=== PATIENT | female | born 1940 | race Caucasian/White ===

== ENCOUNTER 2020-08-19 09:02 | Inpatient (IN) ==
[2020-08-19] MEDS ORDERED: ONDANSETRON 4 MG/2 ML VIAL IV STA (09:10)
[2020-08-19] MEDS ORDERED: fentaNYL 100 MCG/2 ML VIAL IV STA (09:10)
[2020-08-19 09:36] LABS: Basophils % 0.5 % (0.0-0.8); Eosinophils # 0.1 10*3/uL (0.0-0.87); Eosinophils % 1.9 % (0.00-10.9); Hemoglobin 14.3 GM/DL (12.0-16.0); Immature Granulocytes % 0.5 %; Immature Granulocytes Absolute 0.04 #; Lymphocytes # 1.5 10*3/uL (1.4-4.0); Lymphocytes % 19.8 % (21.3-54.2); Mean Corpuscular Volume 94.8 FL (87-102); Mean Platelet Volume 10.9 FL (9.6-12.0); Monocytes % 8.3 % (1.7-12.7); Platelet Count 205 T/CUMM (130-400); Red Blood Count 4.43 MC/CUMM (3.8-5.5); Red Cell Distribution Width 12.4 % (9.3-17.3); White Blood Count 7.6 T/CUMM (4-12)
[2020-08-19 09:55] LABS: Albumin 3.1 G/DL (3.4-5.0); Bilirubin,Total 0.6 MG/DL (0.2-1.0); Calcium 8.8 MG/DL (8.5-10.1); Osmolality,Calculated 281.3 MOS/KG (273-304); Potassium 3.4 MMOL/L (3.5-5.1); Total Protein 7.3 G/DL (6.4-8.9)
[2020-08-19 10:04] LABS: Hypochromasia 1+; Microcytosis 1+; Platelet Estimate Normal
[2020-08-19 10:07] LABS: Bacteria,Urine Occasional /HPF (Few); Bilirubin,Urine Negative (Negative); Blood, Urine Moderate mg/dL (Negative); Glucose,Urine (UA) Negative (Negative); Ketones,Urine Negative (Negative); Mucus,Urine Occasional /LPF (Occasional); Nitrite,Urine Negative (Negative); Protein,Urine Negative; RBC,Urine 2 /HPF (0-4); Urine Appearance Slightly Hazy (Clear); Urine Color Yellow (Yellow); Urine Specific Gravity 1.019 (1.001-1.035); WBC,Urine 4 /HPF (0-6)
[2020-08-19 10:25] LABS: INR 1.1; Partial Thromboplastin Time 29.7 SECS (23.9-33.8)
[2020-08-19] MEDS ORDERED: DEXTROSE 50% 25 GM/50 ML VIAL IV PRN (11:02)
[2020-08-19] MEDS ORDERED: SIMETHICONE CHEW 125 MG TABLET PO PRN (11:02)
[2020-08-19] MEDS ORDERED: ONDANSETRON 4 MG/2 ML VIAL IV PRN (11:02)
[2020-08-19] MEDS ORDERED: BISACODYL 5 MG TABLET PO PRN (11:02)
[2020-08-19] MEDS ORDERED: GLUCAGON 1 MG VIAL IM PRN (11:02)
[2020-08-19] MEDS: SODIUM CHLORIDE 0.9% 1,000 ML IV SCH (13:28)
[2020-08-19] MEDS: HYDROmorphone 2 MG/1 ML VIAL IV PRN (17:17)
[2020-08-19] MEDS ORDERED: traZODone 50 MG TABLET PO SCH (21:00)
[2020-08-19] MEDS: amLODIPine 2.5 MG TABLET PO SCH (21:28)
[2020-08-19] MEDS: DOCUSATE SODIUM 100 MG CAPSULE PO SCH (21:28)
[2020-08-19] MEDS: OLANZapine 5 MG TABLET PO SCH (21:28)
[2020-08-19] MEDS: MIRTAZAPINE 15 MG TABLET PO SCH (21:28)
[2020-08-20] MEDS: SODIUM CHLORIDE 0.9% 1,000 ML IV SCH ×2 (01:42→15:00)
[2020-08-20] MEDS: HYDROmorphone 2 MG/1 ML VIAL IV PRN ×2 (01:42→08:01)
[2020-08-20 05:36] LABS: Basophils % 0.3 % (0.0-0.8); Eosinophils # 0.3 10*3/uL (0.0-0.87); Eosinophils % 3.6 % (0.00-10.9); Hematocrit 38.2 VOL% (35.7-47.0); Hemoglobin 13.1 GM/DL (12.0-16.0); Immature Granulocytes % 0.3 %; Immature Granulocytes Absolute 0.02 #; Lymphocytes # 1.2 10*3/uL (1.4-4.0); Lymphocytes % 16.3 % (21.3-54.2); Mean Corpuscular HGB Conc 34.3 GM/DL (32-36); Mean Corpuscular Volume 95.5 FL (87-102); Mean Platelet Volume 11.3 FL (9.6-12.0); Monocytes % 8.6 % (1.7-12.7); Neutrophils % 70.9 % (38.7-73.9); Platelet Count 168 T/CUMM (130-400); Red Cell Distribution Width 12.5 % (9.3-17.3); White Blood Count 7.3 T/CUMM (4-12)
[2020-08-20] MEDS: LEVOTHYROXINE 25 MCG TABLET PO SCH (05:56)
[2020-08-20 05:59] LABS: Calcium 7.9 MG/DL (8.5-10.1); Potassium 3.2 MMOL/L (3.5-5.1)
[2020-08-20 06:03] LABS: Risk Ratio 2.22; VLDL CHOLESTEROL 12.8 MG/DL
[2020-08-20] MEDS: POTASSIUM CHLORIDE RIDER 10 MEQ in PREMIX 1 EACH IV PRN ×4 (08:01→11:41)
[2020-08-20] MEDS: SERTRALINE 100 MG TABLET PO SCH (10:34)
[2020-08-20] MEDS: OLANZapine 5 MG TABLET PO SCH ×2 (10:34→21:02)
[2020-08-20] MEDS: amLODIPine 2.5 MG TABLET PO SCH ×2 (10:34→21:02)
[2020-08-20] MEDS: MEMANTINE 10 MG TABLET PO SCH (10:34)
[2020-08-20] MEDS ORDERED: ceFAZolin 2,000 MG in PREMIX 1 EACH IV ONE (12:00)
[2020-08-20] MEDS ORDERED: DEXMEDETOMIDINE 200 MCG/2 ML VIAL ONE (12:46)
[2020-08-20] MEDS ORDERED: MIDAZOLAM 2 MG/2 ML VIAL ONE (12:46)
[2020-08-20] MEDS ORDERED: BUPIVACAINE SPINAL 0.75% 2 ML AMP SPINAL ONE (12:46)
[2020-08-20] MEDS ORDERED: DEXAMETHASONE 4 MG/1 ML VIAL ONE (12:54)
[2020-08-20] MEDS ORDERED: LIDOCAINE 1% 5 ML VIAL ONE (12:54)
[2020-08-20] MEDS ORDERED: ROPIVACAINE 0.5% 30 ML VIAL ONE (12:54)
[2020-08-20] MEDS ORDERED: LACTATED RINGERS 1,000 ML IV SCH (13:00)
[2020-08-20] MEDS ORDERED: KETAMINE 500 MG/10 ML VIAL ONE (13:28)
[2020-08-20] MEDS ORDERED: ePHEDrine 50 MG/ML VIAL ONE (13:41)
[2020-08-20] MEDS ORDERED: BACITRACIN OINT 0.9 GM PACK TOP ONE (14:10)
[2020-08-20] MEDS ORDERED: propofoL 200 MG/20 ML VIAL IV ONE (14:12)
[2020-08-20] MEDS ORDERED: PHENYLEPHRINE 1 MG/10 ML SYRINGE IV ONE (14:24)
[2020-08-20] MEDS ORDERED: MORPHINE 4 MG/1 ML VIAL IV PRN ×2 (14:35)
[2020-08-20] MEDS ORDERED: KETOROLAC 15 MG/1 ML VIAL IV PRN (14:35)
[2020-08-20] MEDS ORDERED: MAGNESIUM HYDROXIDE SUSP 30 ML UDCUP PO PRN (14:35)
[2020-08-20] MEDS ORDERED: diphenhydrAMINE 50 MG/1 ML VIAL IV PRN (14:45)
[2020-08-20] MEDS ORDERED: PROMETHAZINE INJ 25 MG in SODIUM CHLORIDE 0.9% 50 ML IV PRN (14:45)
[2020-08-20] MEDS ORDERED: MEPERIDINE 25 MG/1 ML VIAL IV PRN (14:45)
[2020-08-20] MEDS ORDERED: ONDANSETRON 4 MG/2 ML VIAL IV PRN (14:45)
[2020-08-20] MEDS: LACTATED RINGERS 1,000 ML IV SCH ×2 (15:08→23:38)
[2020-08-20] MEDS: ceFAZolin 2,000 MG in PREMIX 1 EACH IV SCH (17:28)
[2020-08-20] MEDS: MIRTAZAPINE 15 MG TABLET PO SCH (21:02)
[2020-08-20] MEDS: DOCUSATE SODIUM 100 MG CAPSULE PO SCH (21:03)
[2020-08-21] MEDS: LACTATED RINGERS 1,000 ML IV SCH (02:05)
[2020-08-21] MEDS: ceFAZolin 2,000 MG in PREMIX 1 EACH IV SCH (02:43)
[2020-08-21 06:12] LABS: Basophils % 0.2 % (0.0-0.8); Eosinophils % 0.2 % (0.00-10.9); Hematocrit 34.7 VOL% (35.7-47.0); Hemoglobin 12.2 GM/DL (12.0-16.0); Immature Granulocytes % 0.5 %; Immature Granulocytes Absolute 0.05 #; Lymphocytes # 1.1 10*3/uL (1.4-4.0); Lymphocytes % 9.8 % (21.3-54.2); Mean Corpuscular HGB Conc 35.2 GM/DL (32-36); Mean Corpuscular Volume 93.5 FL (87-102); Mean Platelet Volume 10.9 FL (9.6-12.0); Monocytes % 6.8 % (1.7-12.7); Neutrophils % 82.5 % (38.7-73.9); Platelet Count 156 T/CUMM (130-400); Red Blood Count 3.71 MC/CUMM (3.8-5.5); Red Cell Distribution Width 12.4 % (9.3-17.3); White Blood Count 10.7 T/CUMM (4-12)
[2020-08-21 06:23] LABS: Calcium 8.3 MG/DL (8.5-10.1); Osmolality,Calculated 286.7 MOS/KG (273-304); Potassium 3.4 MMOL/L (3.5-5.1)
[2020-08-21] MEDS: LEVOTHYROXINE 25 MCG TABLET PO SCH (07:01)
[2020-08-21] MEDS: amLODIPine 2.5 MG TABLET PO SCH ×2 (08:24→21:07)
[2020-08-21] MEDS: OLANZapine 5 MG TABLET PO SCH ×2 (08:24→21:07)
[2020-08-21] MEDS: SERTRALINE 100 MG TABLET PO SCH (08:24)
[2020-08-21] MEDS: FONDAPARINUX 2.5 MG/0.5 ML SYRINGE SUBCUT SCH (08:25)
[2020-08-21] MEDS: MEMANTINE 10 MG TABLET PO SCH (08:25)
[2020-08-21] MEDS ORDERED: traZODone 50 MG TABLET PO PRN (14:12)
[2020-08-21] MEDS: DOCUSATE SODIUM 100 MG CAPSULE PO SCH (21:07)
[2020-08-21] MEDS: MIRTAZAPINE 15 MG TABLET PO SCH (21:07)
[2020-08-21] MEDS ORDERED: LORazepam 2 MG/1 ML VIAL IM ONE (22:11)
[2020-08-22 06:14] LABS: Basophils % 0.4 % (0.0-0.8); Eosinophils # 0.2 10*3/uL (0.0-0.87); Eosinophils % 3.6 % (0.00-10.9); Hemoglobin 12.6 GM/DL (12.0-16.0); Immature Granulocytes % 0.3 %; Immature Granulocytes Absolute 0.02 #; Lymphocytes # 1.5 10*3/uL (1.4-4.0); Lymphocytes % 22.8 % (21.3-54.2); Mean Corpuscular HGB Conc 34.1 GM/DL (32-36); Mean Corpuscular Volume 96.4 FL (87-102); Mean Platelet Volume 11.3 FL (9.6-12.0); Monocytes % 8.5 % (1.7-12.7); Neutrophils % 64.4 % (38.7-73.9); Platelet Count 174 T/CUMM (130-400); Red Blood Count 3.84 MC/CUMM (3.8-5.5); White Blood Count 6.7 T/CUMM (4-12)
[2020-08-22] MEDS: LEVOTHYROXINE 25 MCG TABLET PO SCH (06:36)
[2020-08-22] MEDS: MEMANTINE 10 MG TABLET PO SCH (09:27)
[2020-08-22] MEDS: FONDAPARINUX 2.5 MG/0.5 ML SYRINGE SUBCUT SCH (09:27)
[2020-08-22] MEDS: amLODIPine 2.5 MG TABLET PO SCH (09:27)
[2020-08-22] MEDS: SERTRALINE 100 MG TABLET PO SCH (09:28)
[2020-08-22] MEDS: OLANZapine 5 MG TABLET PO SCH (09:31)
[2020-08-22 12:45] LABS: Bilirubin,Urine Negative (Negative); Blood, Urine Small mg/dL (Negative); Glucose,Urine (UA) Negative (Negative); Ketones,Urine Negative (Negative); Mucus,Urine Occasional /LPF (Occasional); Nitrite,Urine Negative (Negative); Protein,Urine Negative; RBC,Urine 16 /HPF (0-4); Squamous Epithelial Cell,Urine Occasional /HPF (0-10); Urine Appearance Slightly Hazy (Clear); Urine Color Yellow (Yellow); WBC,Urine 10 /HPF (0-6)
[2020-08-22 16:48] VITALS: BP 120/53
== END 2020-08-22 18:30 | disposition home health service (06) | DRG 482 ==
LOC: N.ED 09:02 → SUATTDRO 11:08 → N.3E 11:42
PROVIDERS: ADMIT Internal Medicine; ATTEND Internal Medicine